=== PATIENT | female | born 1950 | race African-American/Black ===

== ENCOUNTER 2017-11-29 14:49 | Day surgery (SDC) | payer OTHER ==
[2017-11-27 09:26] VITALS: BMI 32.1
--- NOTE | 2017-11-29 11:24 | HP ---
History & Physical Update - History History: No Change - Physical Physical: No Change - Assessment Assessment: No Change - Plan Plan: No Change (full H&P in chart from 11/22/2017 Dr. Dennis)
--- NOTE | 2017-11-29 14:48 | OP ---
Operative Note - Note: Operative Date: 11/29/17 Pre-Operative Diagnosis: cervcial stenosis, radiculopathy Operation: anterior cervical disectomy with fusion of C4-5 Surgeon: Nick Chávez [employer] Upholsterer: Betzaida Tomas Anesthesiologist/BILLET STRAIGHTENER: Leidy Reilly Anesthesia: General Specimens Removed: C4-5 disc Estimated Blood Loss (mls): 20 Fluid Volume Replaced (mls): 800 Operative Report Dictated: Yes
[~2017-11-29 14:49] MED LIST: BUPIVACAINE HCL/PF (5 MG/ML) 30 ML VIAL IJ ONE; DEXAMETHASONE SOD PHOSPHATE/PF 10 MG/ML SDV ONE; HYDROmorphone HCL/PF 1 MG/ML VIAL (FOR PYXIS CHARGING ONLY) ONE; LACTATED RINGERS SOLUTION 1,000 ML IV SCH; LIDOCAINE 1%/EPI 1:100000 (20 ML MULTI DOSE VIAL) ONE; MIDAZOLAM HCL 2 MG/2 ML SINGLE DOSE VIAL ONE; ONDANSETRON 4 MG/2 ML VIAL IVPUSH PRN; PROPOFOL 20 ML ONE; ROCURONIUM BROMIDE 50 MG/5 ML VIAL ONE; SUCCINYLCHOLINE CHLORIDE 200 MG/10 ML VIAL ONE; THROMBIN (BOVINE) 5,000 UNIT VIAL TP ONE; oxyCODONE HCL 5 MG TABLET PO PRN
--- NOTE | 2017-11-29 14:49 | SURG ---
Surgery Packaging Mechanic Note Packaging Mechanic: Betzaida Tomas PA-C Date of Service: 11/29/17 Diagnosis: cervical stenosis, radiuclopathy Procedure: anterior cervical discectomy with fusion of C4-5 I was present for the entirety of the operative procedure. For further detail, please refer to operative report.
[2017-11-29] MEDS ORDERED: ACETAMINOPHEN 1000 MG/100 ML VIAL (NON FORMULARY) IVPB ONE ×2 (14:52→14:55)
[2017-11-29] MEDS ORDERED: clonazePAM 0.5 MG TABLET PO PRN (14:53)
[2017-11-29] MEDS ORDERED: ALBUTEROL SO4 18 GM HFA INHALER IH PRN (14:53)
[2017-11-29] MEDS ORDERED: LACTATED RINGERS SOLUTION 1,000 ML IV SCH (15:00)
[2017-11-29] MEDS ORDERED: diazePAM 2 MG TABLET PO PRN (15:02)
[2017-11-29 15:07] VITALS: TEMP 98.2
--- NOTE | 2017-11-29 15:15 | OP ---
DATE OF OPERATION: 11/29/2017 PREOPERATIVE DIAGNOSIS: Cervical stenosis, C4-5. POSTOPERATIVE DIAGNOSIS: Cervical stenosis, C4-5. PROCEDURE PERFORMED: 1. Anterior cervical diskectomy and fusion, C4-5. 2. Placement of instrumentation, C4-5. SURGEON: Nick Chávez MD CERT OCCUPATIONAL THERAPY ASST: ROBERT Finch ESTIMATED BLOOD LOSS: 50 mL INTRAVENOUS FLUIDS: Per Anesthesia. COMPLICATIONS: None. ANESTHESIA: General. DISPOSITION: Patient brought to the PACU in stable condition. INDICATIONS FOR SURGERY: The patient is a 66-year-old female who has been suffering from pain from her neck down her arms. X-rays and MRI were completed which noted that she had spinal stenosis at C4-5. She had gone through an exhaustive course of treatment for this, which included medications, physical therapy as well as injections. Unfortunately, her pain continued to persist despite all this. At this point, risks, benefits, and alternatives were discussed, and the patient consented to surgery. DESCRIPTION OF PROCEDURE: Patient was brought to the operating room by the anesthesia staff. After appropriate patient identification was performed, general anesthesia was administered. Appropriate anesthetic lines were placed. SCDs were placed on the patient. The patient was placed on the OR bed with her arms tucked in to the side. All areas of bony prominences were well padded at this time. A shoulder roll was placed underneath her shoulders to extend her neck to the point that she could tolerate in the preoperative holding area. A needle was taped onto her neck to [place] off the C4-5 level. An x-ray was taken to confirm this as correct. Needle was removed, and 10 mL of lidocaine with epinephrine were injected into her neck at this time. Her neck was prepped and draped in a sterile manner. At this point, a timeout was completed. An incision was made from the left side of her neck. Dissection was carried down to the platysma. The platysma was cut in line with the skin incision. Next, an interval between the sternocleidomastoid and strap muscles was developed. Next, an interval between the carotid sheath and tracheoesophagus was developed. Peanuts were used to elevate off the prevertebral fascia. A needle was placed in the C4-5 disk. An x-ray was taken to confirm this was correct. Needle was removed. [place] pins were placed into the body of C4 and C5. A knife was used to incise the disk. The longus colli muscles were elevated off, and retractor blades were placed. The microscope was brought in. Distraction was applied. Using a series of pituitaries, Kerrisons, and curettes, a diskectomy was completed. The endplates were decorticated at this time. A cage filled with bone graft was placed in. A screw was placed into the body of C4. A screw was placed into the body C5. The [place] pins were removed. AP and lateral x-rays confirmed the instrumentation to be in good position. Final tightening was performed. The platysma was closed with 2-0 Vicryl suture. Skin was closed with 3-0 Monocryl suture. Dermabond was applied. Steri-Strips were applied. A sterile dressing was applied. Patient was placed supine on the OR bed, extubated in the OR, and brought to the PACU in stable condition. Marry REESE/[id number]
[2017-11-29] MEDS ORDERED: traMADol HCL 50 MG TABLET PO SCH (17:00)
[2017-11-29] MEDS ORDERED: CEFAZOLIN 1 GM/D5W 1 GM/50 ML BAG ONE (17:06)
[2017-11-29] MEDS ORDERED: CEFAZOLIN 1 GM/D5W 1 GM/50 ML BAG IVPB SCH (18:00)
[2017-11-29 18:35] VITALS: BP 146/85; PULSE 79
[2017-11-29] MEDS ORDERED: PATIENT'S OWN MEDICATION (NON-FORMULARY) (Cetirizine Hcl 10 MG) PO SCH (22:00)
[2017-11-29] MEDS ORDERED: PATIENT'S OWN MEDICATION (NON-FORMULARY) (Hydrochlorothiazide [Hydrochlorothiazide] 12.5 M PO SCH (22:00)
[2017-11-29] MEDS ORDERED: DOCUSATE SODIUM 100 MG CAPSULE (FP) PO SCH (22:00)
[2017-11-29] MEDS ORDERED: LORATADINE 10 MG TABLET PO SCH (22:00)
[2017-11-29] MEDS ORDERED: TIOTROPIUM BROMIDE 18 MCG CAPSULES IH SCH (22:00)
[2017-11-30] MEDS ORDERED: HYDROCHLOROTHIAZIDE 12.5 MG CAPSULE (FP) PO SCH (10:00)
[2017-11-30] MEDS ORDERED: PATIENT'S OWN MEDICATION (NON-FORMULARY) (Losartan Potassium [Losartan Potassium] 100 MG) PO SCH (10:00)
[2017-11-30] MEDS ORDERED: LOSARTAN POTASSIUM 50 MG TABLET (FP) PO SCH (10:00)
--- NOTE | 2017-12-03 16:03 | PATH ---
Surgical Pathology Report Patient Name: JOLYNN ARCHIBALD [facility]. Rec. #: [id number] /Age/Gender: 1950 (Age: 66) / F Account: [id number] Location: [facility] AM[facility] Taken: 11/29/2017 Received: 11/29/2017 Reported: 12/03/2017 Physicians: Nick Chávez M.D. Specimen(s) Received DISC C4-5 Clinical History Cervical stenosis Final Diagnosis DISC, C4-5, DISCECTOMY: INTERVERTEBRAL DISC TISSUE AND BONE. Electronically Signed Isa Miller M.D. Gross Description Received in formalin labeled "disc C4-5," is a 1.8 x 1.2 x 0.3 cm aggregate of michelle fragments of fibrocartilaginous tissue. The specimen is entirely submitted in one cassette. 11/30/201711/30/2017
== END 2017-11-29 18:25 | disposition home or self-care (01) ==
LOC: FM/S 14:49 → FASU 14:49
PROVIDERS: ATTEND Orthopaedic Surgery Orthopaedic Surgery of the Spine
PROC: 0RG10A0 Fusion of Cervical Vertebral Joint with Interbody Fusion Device, Anterior Approach, Anterior Column, Open Approach (ICD-10-PCS; 2017-11-29)
PROC: 0RG10K0 Fusion of Cervical Vertebral Joint with Nonautologous Tissue Substitute, Anterior Approach, Anterior Column, Open Approach (ICD-10-PCS; 2017-11-29)
PROC: 0RB30ZZ Excision of Cervical Vertebral Disc, Open Approach (ICD-10-PCS; principal; 2017-11-29 13:15)
DX: M48.02 Spinal stenosis, cervical region (principal)
CPT/HCPCS: 22551; 22845; 22853; C1889; 72050-TC-FY; 76001-TC-FY; 88304-TC; 94760; J0131